=== PATIENT | male | born 1960 | race Caucasian/White ===

== ENCOUNTER 2023-02-21 13:13 | Outpatient (CLI) | payer MEDICARE, SELFPAY | END 2023-02-21 13:14 | disposition home or self-care (01) | PROVIDERS: PCP Family Medicine; Visit Provider Family Medicine | DX: D64.9 Anemia, unspecified (principal); I10 Essential (primary) hypertension; E78.5 Hyperlipidemia, unspecified; R63.4 Abnormal weight loss; Z12.5 Encounter for screening for malignant neoplasm of prostate; I95.1 Orthostatic hypotension; R82.90 Unspecified abnormal findings in urine | CPT/HCPCS: 84153; 84443; 87086 ==

== ENCOUNTER 2023-02-28 11:38 | Outpatient (CLI) | payer MEDICARE, BC, SELFPAY ==
--- NOTE | 2023-02-28 06:34 | W.ANESCHARGE ---
Anesthesia Charges Start Date/Time Anesthesia Start Date: 02/28/23 Anesthesia Start Time: 12:51 Stop Date/Time Anesthesia Stop Date: 02/28/23 Anesthesia Stop Time: 13:38
--- NOTE | 2023-02-28 13:41 | W.ANESCHARGE ---
Anesthesia Charges Start Date/Time Anesthesia Start Date: 02/28/23 Anesthesia Start Time: 12:51 Stop Date/Time Anesthesia Stop Date: 02/28/23 Anesthesia Stop Time: 13:38
== END 2023-02-28 11:39 | disposition home or self-care (01) ==
LOC: OP CLINIC 11:39
PROVIDERS: PCP Family Medicine; Visit Provider Surgery
DX: Z12.11 Encounter for screening for malignant neoplasm of colon (principal); K62.1 Rectal polyp; Z80.0 Family history of malignant neoplasm of digestive organs
CPT/HCPCS: 45385; 811; 812; 88305; J2704